=== PATIENT | female | born 2000 | race Two or more races ===

== ENCOUNTER → 2023-07-18 | Outpatient (CLI) | payer OTHER ==
[2023-07-18 17:42] LABS: HEMATOCRIT 37.8 % (36.0-47.0); HEMOGLOBIN 12.6 g/dl (12.0-15.5); MEAN CORPUSCULAR HEMOGLOBIN 29.4 pg (27.0-33.0); MEAN CORPUSCULAR HGB CONC 33.3 g/dl (32.0-36.5); MEAN CORPUSCULAR VOLUME 88.3 fl (80.0-96.0); PLATELET COUNT, AUTOMATED 212 10^3/uL (150-450); RED BLOOD COUNT 4.28 10^6/uL (4.00-5.40); WHITE BLOOD COUNT 7.4 10^3/uL (4.0-10.0)
[2023-07-18 18:35] LABS: HIV 1&2 SCREEN NEGATIVE (NEGATIVE)
[2023-07-18 18:43] LABS: HEPATITIS C VIRUS ABY INDEX 0.02 INDEX (<0.8)
[2023-07-18 19:44] LABS: CHLAMYDIA DNA AMPLIFICATION NEGATIVE (NEGATIVE); GC DNA AMPLIFICATION NEGATIVE (NEGATIVE)
== END ==
LOC: M PLALAB 14:44
PROVIDERS: ATTEND Obstetrics & Gynecology
DX: Z34.81 Encounter for supervision of other normal pregnancy, first trimester (principal)

== ENCOUNTER → 2023-08-14 | Outpatient (CLI) | payer MEDICAID, OTHER | LOC: M PLALAB 14:16 | PROVIDERS: ATTEND Obstetrics & Gynecology | DX: Z34.81 Encounter for supervision of other normal pregnancy, first trimester (principal) ==

== ENCOUNTER → 2023-10-02 | Outpatient (CLI) | payer MEDICAID | LOC: M WHC 08:50 | PROVIDERS: ATTEND Obstetrics & Gynecology | DX: Z34.92 Encounter for supervision of normal pregnancy, unspecified, second trimester (principal) ==

== ENCOUNTER → 2023-11-08 | Outpatient (CLI) | payer MEDICAID, OTHER ==
[2023-11-08 16:08] LABS: HEMATOCRIT 34.9 % (36.0-47.0); HEMOGLOBIN 11.7 g/dl (12.0-15.5); MEAN CORPUSCULAR HEMOGLOBIN 31.5 pg (27.0-33.0); MEAN CORPUSCULAR HGB CONC 33.5 g/dl (32.0-36.5); MEAN CORPUSCULAR VOLUME 94.1 fl (80.0-96.0); PLATELET COUNT, AUTOMATED 158 10^3/uL (150-450); RED BLOOD COUNT 3.71 10^6/uL (4.00-5.40); WHITE BLOOD COUNT 9.5 10^3/uL (4.0-10.0)
[2023-11-08 17:22] LABS: GC DNA AMPLIFICATION NEGATIVE (NEGATIVE)
== END ==
LOC: M PLALAB 10:50
PROVIDERS: ATTEND Obstetrics & Gynecology
DX: Z34.92 Encounter for supervision of normal pregnancy, unspecified, second trimester (principal)

== ENCOUNTER → 2024-01-07 | Outpatient (REF) | payer OTHER, MEDICAID | LOC: M PLALAB 14:04 | PROVIDERS: ATTEND Obstetrics & Gynecology | DX: Z36.85 Encounter for antenatal screening for Streptococcus B (principal); Z3A.36 36 weeks gestation of pregnancy ==

== ENCOUNTER 2024-02-03 13:59 | Inpatient (IN) | payer OTHER, MEDICAID ==
[~2024-02-03] VITALS: Ht 165.1 cm; Wt 80.3 kg
[2024-02-03] VITALS (20 sets, daily range): BP systolic 101–136; BP diastolic 56–68; O2SAT 100
[2024-02-03] MEDS ORDERED: PRENTAB9 PO (14:16)
[2024-02-03] MEDS ORDERED: HOME MED LIST COMPLETE! XX SCH (14:25)
[2024-02-03] MEDS ORDERED: OXYTOCIN DRIP 30 UNITS in IV 1 EA IV PRN (14:40)
[2024-02-03] MEDS ORDERED: TRANEXAMIC ACID INJection 1,000 MG in NS 100 ML IV PRN (14:40)
[2024-02-03] MEDS ORDERED: METHYLERGONOVINE MALEATE 0.2MG/ML 1ML VIAL IM PRN (14:40)
[2024-02-03] MEDS ORDERED: CARBOPROST TROMETHAMINE 250 MCG/ML AMP IM PRN (14:40)
[2024-02-03] MEDS: LACTATED RINGER'S 1000 ML IV STA (14:59)
[2024-02-03 15:13] LABS: HEMATOCRIT 35.4 % (36.0-47.0); HEMOGLOBIN 12.2 g/dl (12.0-15.5); MEAN CORPUSCULAR HEMOGLOBIN 32.1 pg (27.0-33.0); MEAN CORPUSCULAR HGB CONC 34.5 g/dl (32.0-36.5); MEAN CORPUSCULAR VOLUME 93.2 fl (80.0-96.0); PLATELET COUNT, AUTOMATED 168 10^3/uL (150-450)
[2024-02-03] MEDS ORDERED: LR 500 ML IV PRN (16:00)
[2024-02-03] MEDS ORDERED: ePHEDrine SULFATE 25 MG/5 ML(5MG/ML) SYRINGE IVP PRN (16:00)
[2024-02-03] MEDS ORDERED: EPIDURAL/PCA KEYS XX PRN (16:00)
[2024-02-03] MEDS ORDERED: diphenhydrAMINE 50MG/ML VIAL IV PRN (16:00)
[2024-02-03] MEDS ORDERED: NALOXONE INJ 0.4MG/1ML VIAL IV PRN (16:00)
[2024-02-03] MEDS ORDERED: ONDANSETRON 4MG 2ML VIAL IV PRN (16:00)
[2024-02-03] MEDS: FENTANYL/ROPIVACAINE/NACL BAG 100 ML EPIDURAL SCH (16:11)
[2024-02-03 16:12] LABS: HEPATITIS C VIRUS ABY INDEX 0.02 INDEX (<0.8)
[2024-02-03] MEDS: OXYTOCIN DRIP 30 UNITS in IV 1 EA IV SCH (19:32)
[2024-02-03] MEDS ORDERED: DOCUSATE SODIUM 100MG CAPSULE PO PRN (21:30)
[2024-02-03] MEDS ORDERED: RHO(D) IMMUNE GLOBULIN/MALTOSE 500MCG(2500IU)/2.2ML VIAL (WINRHO) IM SCH (21:30)
[2024-02-03] MEDS ORDERED: DIBUCAINE 1% OINTMENT 30GM TOP PRN (21:30)
[2024-02-03] MEDS ORDERED: IBUPROFEN 600MG TAB PO PRN (21:30)
[2024-02-03] MEDS ORDERED: METHYLERGONOVINE MALEATE 0.2 MG TAB PO PRN (21:30)
[2024-02-04 06:00] VITALS: BP 99/52; O2SAT 98
[2024-02-04 07:41] LABS: HEMOGLOBIN 12.1 g/dl (12.0-15.5); MEAN CORPUSCULAR HEMOGLOBIN 31.2 pg (27.0-33.0); MEAN CORPUSCULAR HGB CONC 33.6 g/dl (32.0-36.5); MEAN CORPUSCULAR VOLUME 92.8 fl (80.0-96.0); PLATELET COUNT, AUTOMATED 154 10^3/uL (150-450); RED BLOOD COUNT 3.88 10^6/uL (4.00-5.40); WHITE BLOOD COUNT 14.5 10^3/uL (4.0-10.0)
[2024-02-04] MEDS: PRENATAL VITAMINS CHEWABLE TABLET PO SCH (08:02)
[2024-02-04 08:07] VITALS: O2SAT 98
[2024-02-04 18:05] VITALS: BP 113/64; O2SAT 99
[2024-02-05] MEDS: ACETAMINOPHEN 500 MG TAB PO PRN (01:48)
[2024-02-05 06:00] VITALS: BP 102/56; O2SAT 99
[2024-02-05] MEDS: MEASLES,MUMPS,RUBELLA VACCINE INJ (MMR-II) SC.IMMUN ONE (06:58)
== END 2024-02-05 17:50 | disposition home or self-care (01) | DRG 560 ==
LOC: M LDO 13:59 → M LDI 14:36 → M OBS 22:30
PROVIDERS: ADMIT Obstetrics & Gynecology; ATTEND Obstetrics & Gynecology
PROC: 10E0XZZ Delivery of Products of Conception, External Approach (ICD-10-PCS; principal; 2024-02-03)
PROC: 0HQ9XZZ Repair Perineum Skin, External Approach (ICD-10-PCS; 2024-02-03)
DX: O69.81X0 Labor and delivery complicated by cord around neck, without compression, not applicable or unspecified (principal); O77.0 Labor and delivery complicated by meconium in amniotic fluid; Z37.0 Single live birth; Z3A.40 40 weeks gestation of pregnancy; O70.0 First degree perineal laceration during delivery

== ENCOUNTER 2024-06-02 10:00 | Outpatient (RCR) | payer OTHER ==
[~2024-06-02 10:00] MED LIST: PRENTAB9 PO
== END 2024-06-07 ==
LOC: M PT 10:00
PROVIDERS: ATTEND Obstetrics & Gynecology
DX: R10.2 Pelvic and perineal pain (principal)

== ENCOUNTER 2024-06-30 13:00 | Outpatient (RCR) | payer OTHER | END 2024-07-08 | LOC: M PT 13:00 | PROVIDERS: ATTEND Obstetrics & Gynecology | DX: R10.2 Pelvic and perineal pain (principal) ==

== ENCOUNTER 2024-07-10 10:07 | Outpatient (RCR) | payer OTHER | END 2024-08-08 | LOC: M PT 10:07 | PROVIDERS: ATTEND Obstetrics & Gynecology | DX: R10.2 Pelvic and perineal pain (principal) ==